=== PATIENT | male | born 1950 | race Two or more races ===

== ENCOUNTER 2021-12-15 13:19 | Inpatient (IN) | payer OTHER, MEDICARE ==
[~2021-12-15] VITALS: Ht 165.1 cm; Wt 88.9 kg
[2021-12-15] MEDS ORDERED: NITROGLYCERIN OINT 1GM/INCH UDPKT TD ONE (14:15)
[2021-12-15] MEDS ORDERED: ALBUTEROL (0.5%) 2.5MG/0.5ML NEB HHN ONE (14:15)
[2021-12-15] MEDS ORDERED: ASPIRIN 81MG TABLET PO ONE (14:15)
[2021-12-15] MEDS ORDERED: FUROSEMIDE 40MG/4ML VIAL IV ONE (14:15)
[2021-12-15 14:29] LABS: BASOPHILS % 0.4 % (0.0-2.0); EOSINOPHILS % 1.3 % (0.0-5.0); HEMATOCRIT. 49.6 % (42.0-52.0); HEMOGLOBIN. 16.6 g/dL (14.0-18.0); LYMPHOCYTES % 9.3 % (20.0-50.0); MEAN CORPUSCULAR HEMOGLOBIN 28.5 pg (28.0-32.0); MEAN CORPUSCULAR VOLUME 85.4 fL (80.0-94.0); MEAN PLATELET VOLUME 7.6 fl (7.4-10.4); MONOCYTES % 12.4 % (2.0-8.0); NEUTROPHILS % 76.6 % (40.0-76.0); PLATELET 290 x1000/uL (130-400); RED BLOOD CELL COUNT 5.81 mill/uL (4.7-6.1)
[2021-12-15 14:36] LABS: CHLORIDE 107 mEq/L (98-107)
[2021-12-15 16:49] LABS: D-DIMER 0.34 mg/L FEU (<0.50); PARTIAL THROMBOPLASTIN TIME 28.2 sec (23.4-31.0); PROTHROMBIN TIME 10.9 sec (9.6-11.0)
[2021-12-15] MEDS ORDERED: KETOROLAC 15MG/ML VIAL IV PRN (19:45)
[2021-12-15] MEDS ORDERED: NITROGLYCERIN 0.4MG TABLET SL SL PRN (19:45)
[2021-12-15] MEDS ORDERED: MAGNESIUM/ALUMINUM HYDROXIDE/SIMETHICONE 30ML UDC PO PRN (19:45)
[2021-12-15] MEDS ORDERED: ONDANSETRON HCL 4MG/2ML INJ IV PRN (19:45)
[2021-12-15] MEDS ORDERED: DOCUSATE SODIUM 100MG CAPSULE PO PRN (19:45)
[2021-12-15] MEDS ORDERED: IPRATROPIUM/ALBUTEROL 0.5-3(2.5)MG/3ML NEB NEB PRN (19:45)
[2021-12-15] MEDS ORDERED: ZOLPIDEM TARTRATE 5MG TABLET PO PRN (19:45)
[2021-12-15] MEDS ORDERED: GUAIFENESIN 200MG/10ML SUGAR FREE UDC PO PRN (19:45)
[2021-12-15] MEDS ORDERED: ACETAMINOPHEN 325MG TABLET PO PRN ×2 (19:45)
[2021-12-15 20:22] LABS: ETHANOL BLOOD < 10 mg/dL
[2021-12-15 20:24] LABS: TOTAL IRON BINDING CAPACITY 337 ug/dL (250-450)
[2021-12-15 20:25] LABS: LDL CHOLESTEROL 123 mg/dL (5-100)
[2021-12-15 20:26] LABS: HDL CHOLESTEROL 60 mg/dL (40-59)
[2021-12-15 20:39] LABS: FOLIC ACID (FOLATE) SERUM >20 ng/mL ng/mL (>5.38)
[2021-12-15] MEDS ORDERED: DEXTROSE 50% WATER 50ML SYRINGE IV PRN (20:45)
[2021-12-15 20:51] LABS: VITAMIN B12 SERUM 387 pg/mL (211-911)
[2021-12-15] MEDS: BLOOD SUGAR DIAGNOSTIC STRIP TEST SCH (21:00)
[2021-12-15] MEDS ORDERED: ALBUTEROL (0.083%) 2.5MG/3ML NEB HHN NR (21:22)
[2021-12-15 22:00] VITALS: BP 173/92
[2021-12-15] MEDS: METHYLPREDNISOLONE SOD SUCC 125 MG/2 ML VIAL IV SCH (23:24)
[2021-12-15] MEDS: FAMOTIDINE 20MG TABLET PO SCH (23:25)
[2021-12-15] MEDS: CLONIDINE 0.1MG TABLET PO PRN (23:25)
[2021-12-15] MEDS: ASCORBIC ACID 500 MG TABLET PO SCH (23:25)
[2021-12-15] MEDS: INSULIN LISPRO 100 UNITS/ML SUBCUT SCH (23:26)
[2021-12-15 23:43] LABS: CREATINE KINASE MB FRACTION 2.6 ng/mL (0.5-3.6)
[2021-12-16] VITALS: BP 134/71
[2021-12-16] MEDS: DILTIAZEM HCL 60MG TABLET PO SCH ×5 (01:27→17:28)
[2021-12-16] MEDS: LEVOFLOXACIN 500MG PREMIX 100 ML IV SCH (01:27)
[2021-12-16] MEDS ORDERED: ASPI-1406 MT (03:06)
[2021-12-16] MEDS ORDERED: INSU100I28 SQ (03:06)
[2021-12-16] MEDS ORDERED: LOSA25TA26 PO (03:06)
[2021-12-16 04:00] VITALS: BP 147/83
[2021-12-16] MEDS: METHYLPREDNISOLONE SOD SUCC 125 MG/2 ML VIAL IV SCH ×3 (05:50→21:46)
[2021-12-16] MEDS: BLOOD SUGAR DIAGNOSTIC STRIP TEST SCH ×4 (06:23→21:24)
[2021-12-16] MEDS: INSULIN LISPRO 100 UNITS/ML SUBCUT SCH ×4 (06:36→21:46)
[2021-12-16 08:00] VITALS: BP 148/89
[2021-12-16] MEDS: ASCORBIC ACID 500 MG TABLET PO SCH ×2 (09:02→21:46)
[2021-12-16] MEDS: ZINC SULFATE 220 MG ( 50 ) CAPSULE PO SCH (09:02)
[2021-12-16] MEDS: ASPIRIN 325MG EC TABLET PO SCH (09:02)
[2021-12-16] MEDS: ENOXAPARIN 40MG/0.4ML SYR SUBCUT SCH (09:02)
[2021-12-16 10:30] LABS: HEMOGLOBIN. 15.8 g/dL (14.0-18.0); MEAN CORPUSCULAR HEMOGLOBIN 29.2 pg (28.0-32.0); MEAN CORPUSCULAR VOLUME 86.7 fL (80.0-94.0); MEAN PLATELET VOLUME 8.3 fl (7.4-10.4); PLATELET 256 x1000/uL (130-400); RED BLOOD CELL COUNT 5.42 mill/uL (4.7-6.1); RED CELL DISTRIBUTION WIDTH 16.4 % (11.6-14.6)
[2021-12-16 10:31] LABS: CHLORIDE 104 mEq/L (98-107)
[2021-12-16 10:40] LABS: CREATINE KINASE 88 IU/L (39-308)
[2021-12-16 10:42] LABS: CREATINE KINASE MB FRACTION 1.9 ng/mL (0.5-3.6)
[2021-12-16 12:00] VITALS: BP 162/85
[2021-12-16] MEDS: IPRATROPIUM/ALBUTEROL 0.5-3(2.5)MG/3ML NEB HHN SCH (12:00)
[2021-12-16] MEDS: CLONIDINE 0.1MG TABLET PO PRN ×2 (12:06→17:33)
[2021-12-16 14:09] LABS: PLATELET ESTIMATE NORMAL
[2021-12-16] MEDS: INSULIN GLARGINE 100 UNITS/ML SUBCUT SCH (14:47)
[2021-12-16 16:00] VITALS: BP 155/92
[2021-12-16 20:00] VITALS: BP 137/76
[2021-12-16] MEDS ORDERED: INSULIN LISPRO 100 UNITS/ML SUBCUT NR (21:30)
[2021-12-16] MEDS: FAMOTIDINE 20MG TABLET PO SCH (21:46)
[2021-12-17] VITALS: BP 159/93
[2021-12-17] MEDS: LEVOFLOXACIN 500MG PREMIX 100 ML IV SCH ×2 (00:28→22:46)
[2021-12-17] MEDS: DILTIAZEM HCL 60MG TABLET PO SCH ×5 (00:28→23:34)
[2021-12-17 04:00] VITALS: BP 146/86
[2021-12-17 04:37] LABS: *AMPHETAMINES SCREEN URINE NEGATIVE (NEGATIVE); *BARBITURATES SCREEN URINE NEGATIVE (NEGATIVE)
[2021-12-17 04:38] LABS: *BENZODIAZEPINES SCREEN URINE NEGATIVE (NEGATIVE); *COCAINE SCREEN URINE PRESUMTIVE POSITIVE (NEGATIVE); METHADONE URINE SCREEN NEGATIVE (NEGATIVE); OPIATES URINE SCREEN NEGATIVE (NEGATIVE); PHENCYCLIDINE URINE SCREEN NEGATIVE (NEGATIVE)
[2021-12-17 04:41] LABS: CANNABINOID URINE SCREEN NEGATIVE (NEGATIVE)
[2021-12-17] MEDS: BLOOD SUGAR DIAGNOSTIC STRIP TEST SCH ×4 (06:08→21:00)
[2021-12-17] MEDS: METHYLPREDNISOLONE SOD SUCC 125 MG/2 ML VIAL IV SCH ×3 (06:08→22:46)
[2021-12-17] MEDS: INSULIN LISPRO 100 UNITS/ML SUBCUT SCH ×4 (06:09→23:01)
[2021-12-17 08:00] VITALS: BP 155/78
[2021-12-17] MEDS: ZINC SULFATE 220 MG ( 50 ) CAPSULE PO SCH (09:31)
[2021-12-17] MEDS: ASPIRIN 325MG EC TABLET PO SCH (09:31)
[2021-12-17] MEDS: ASCORBIC ACID 500 MG TABLET PO SCH ×2 (09:31→22:46)
[2021-12-17] MEDS: ENOXAPARIN 40MG/0.4ML SYR SUBCUT SCH (09:31)
[2021-12-17] MEDS: INSULIN GLARGINE 100 UNITS/ML SUBCUT SCH ×2 (09:32→22:00)
[2021-12-17 12:00] VITALS: BP 158/91
[2021-12-17] MEDS: IPRATROPIUM/ALBUTEROL 0.5-3(2.5)MG/3ML NEB HHN SCH ×3 (12:21→21:52)
[2021-12-17] MEDS ORDERED: INSULIN LISPRO 100 UNITS/ML SUBCUT ONE (14:30)
[2021-12-17] MEDS ORDERED: INSULIN LISPRO 100 UNITS/ML SUBCUT NR (14:30)
[2021-12-17 16:00] VITALS: BP 161/73
[2021-12-17 20:30] VITALS: BP 147/87
[2021-12-17] MEDS: ENOXAPARIN 30MG/0.3ML SYR SUBCUT SCH (22:45)
[2021-12-17] MEDS: FAMOTIDINE 20MG TABLET PO SCH (22:46)
[2021-12-18] VITALS: BP 147/76
[2021-12-18] MEDS: IPRATROPIUM/ALBUTEROL 0.5-3(2.5)MG/3ML NEB HHN SCH ×3 (02:23→20:11)
[2021-12-18 04:00] VITALS: BP 142/78
[2021-12-18] MEDS: BLOOD SUGAR DIAGNOSTIC STRIP TEST SCH ×4 (06:39→21:10)
[2021-12-18] MEDS: DILTIAZEM HCL 60MG TABLET PO SCH ×4 (06:40→23:41)
[2021-12-18] MEDS: METHYLPREDNISOLONE SOD SUCC 125 MG/2 ML VIAL IV SCH (06:41)
[2021-12-18 08:00] VITALS: BP 161/90
[2021-12-18] MEDS: ASCORBIC ACID 500 MG TABLET PO SCH ×2 (08:57→21:09)
[2021-12-18] MEDS: ZINC SULFATE 220 MG ( 50 ) CAPSULE PO SCH (08:57)
[2021-12-18] MEDS: ASPIRIN 325MG EC TABLET PO SCH (08:57)
[2021-12-18] MEDS: CLONIDINE 0.1MG TABLET PO PRN (08:58)
[2021-12-18] MEDS: ENOXAPARIN 30MG/0.3ML SYR SUBCUT SCH ×2 (08:58→21:09)
[2021-12-18] MEDS: INSULIN LISPRO 100 UNITS/ML SUBCUT SCH ×4 (09:00→21:18)
[2021-12-18] MEDS: INSULIN GLARGINE 100 UNITS/ML SUBCUT SCH ×2 (11:50→21:19)
[2021-12-18 12:30] VITALS: BP 145/77
[2021-12-18 16:20] VITALS: BP 145/87
[2021-12-18] MEDS: PREDNISONE 20MG TABLET PO SCH (17:06)
[2021-12-18 20:00] VITALS: BP 148/73
[2021-12-18] MEDS: BUDESONIDE 0.5MG/2ML NEB HHN SCH (20:11)
[2021-12-18] MEDS: LEVOFLOXACIN 500MG PREMIX 100 ML IV SCH (21:09)
[2021-12-18] MEDS: FAMOTIDINE 20MG TABLET PO SCH (21:09)
[2021-12-19] VITALS (7 sets, daily range): BP systolic 141–190; BP diastolic 76–113
[2021-12-19] MEDS: IPRATROPIUM/ALBUTEROL 0.5-3(2.5)MG/3ML NEB HHN SCH ×3 (00:25→20:03)
[2021-12-19] MEDS: DILTIAZEM HCL 60MG TABLET PO SCH ×3 (06:51→18:04)
[2021-12-19] MEDS: BLOOD SUGAR DIAGNOSTIC STRIP TEST SCH ×3 (07:33→18:02)
[2021-12-19] MEDS: INSULIN LISPRO 100 UNITS/ML SUBCUT SCH ×3 (07:58→18:02)
[2021-12-19] MEDS: ENOXAPARIN 30MG/0.3ML SYR SUBCUT SCH (08:07)
[2021-12-19] MEDS: ASCORBIC ACID 500 MG TABLET PO SCH (08:07)
[2021-12-19] MEDS: ASPIRIN 325MG EC TABLET PO SCH (08:07)
[2021-12-19] MEDS: ZINC SULFATE 220 MG ( 50 ) CAPSULE PO SCH (08:07)
[2021-12-19] MEDS: PREDNISONE 20MG TABLET PO SCH ×2 (08:07→18:03)
[2021-12-19] MEDS: INSULIN GLARGINE 100 UNITS/ML SUBCUT SCH (10:00)
[2021-12-19] MEDS ORDERED: LEVO500T89 MT (11:53)
[2021-12-19] MEDS ORDERED: P50 MT (11:53)
[2021-12-19] MEDS: CLONIDINE 0.1MG TABLET PO PRN (18:03)
[2021-12-19] MEDS: BUDESONIDE 0.5MG/2ML NEB HHN SCH (20:03)
[2021-12-19] MEDS ORDERED: LEVOFLOXACIN 500MG TABLET PO SCH (21:00)
== END 2021-12-19 20:55 | disposition home or self-care (01) | DRG 190 ==
LOC: ER 13:19 → 6WST 18:25 → EDBEDREQTM 18:48 → EDBEDREQ 18:48 → SUPCPDRO 19:35 → ENRESERV 21:15
PROVIDERS: ADMIT Internal Medicine; ATTEND Internal Medicine
DX: J44.1 Chronic obstructive pulmonary disease with (acute) exacerbation (principal); J96.00 Acute respiratory failure, unspecified whether with hypoxia or hypercapnia; I50.30 Unspecified diastolic (congestive) heart failure; I11.0 Hypertensive heart disease with heart failure; E78.5 Hyperlipidemia, unspecified; F14.10 Cocaine abuse, uncomplicated; Z99.81 Dependence on supplemental oxygen; Y92.89 Other specified places as the place of occurrence of the external cause; Z79.4 Long term (current) use of insulin; E11.65 Type 2 diabetes mellitus with hyperglycemia
CPT/HCPCS: 36415; 71045; 80053; 80061; 80305; 80320; 82550; 82553; 82607; 82746; 82962; 83036; 83540; 83550; 83735; 83880; 84100; 84484; 85025; 85379; 93005; 93306; 93970; 94640; 99285; C1893; J1650; J1815; J1956; J2930; J7512; J7626; G0480